=== PATIENT | female | born 1970 | race Caucasian/White ===

== ENCOUNTER 2017-10-18 15:23 | Inpatient (IN) | payer OTHER ==
[2017-10-17] MEDS: FAMOTIDINE 20 MG/2 ML VIAL IV PUSH SCH (23:10)
[2017-10-18] VITALS (7 sets, daily range): BP systolic 130–172; BP diastolic 76–90; PULSE 64–89; RESP 16–20; TEMP 97.9–98.1; O2SAT 93–97
[~2017-10-18 15:23] MED LIST: IODIXANOL 320 MG/ML 10 ML VIAL (for Rad CT) IVCONTRAST ONE; PANT20 PO; ZOFR4TAB3 SL
[2017-10-18] MEDS ORDERED: SODIUM CHLOR 0.9% 1000 ML INJ 1,000 ML IV ONE (15:30)
--- NOTE | 2017-10-18 15:44 | RADRPT ---
EXAM DATE/TIME: 10/18/2017 15:33 [facility] COMPARISON: No previous studies available for comparison. INDICATIONS : Stroke alert, aphasia RADIATION DOSE: 35.60 CTDIvol (mGy) This report was called by Dr. Britt to Dr. Belcher at 1541 hrs. MEDICAL HISTORY : Non-responsive. SURGICAL HISTORY : Non-responsive. ENCOUNTER: Initial ACUITY: 1 day PAIN SCALE: Non-responsive LOCATION: cranial TECHNIQUE: Multiple contiguous axial images were obtained of the head. Using automated exposure control and adj ustment of the mA and/or kV according to patient size, radiation dose was kept as low as reasonably a chievable to obtain optimal diagnostic quality images. DICOM format image data is available electro nically for review and comparison. FINDINGS: CEREBRUM: The ventricles are normal for age. No evidence of midline shift, mass lesion, hemorrhage or acute in farction. No extra-axial fluid collections are seen. POSTERIOR FOSSA: The cerebellum and brainstem are intact. The 4th ventricle is midline. The cerebellopontine angle i s unremarkable. EXTRACRANIAL: The visualized portion of the orbits is intact. SKULL: The calvaria is intact. No evidence of skull fracture. CONCLUSION: Negative examination. Allen Britt MD on October 18, 2017 at 15:40 Board Certified Radiologist. This report was verified electronically.
[2017-10-18 15:52] LABS: AUTOMATED NEUTROPHIL # 4.3 TH/MM3 (1.8-7.7); BASOPHIL % 0.7 % (0.0-2.0); EOSINOPHIL # 0.1 TH/MM3 (0-0.4); HEMATOCRIT 39.6 % (35.0-46.0); HEMOGLOBIN 13.4 GM/DL (11.6-15.3); LYMPH % 27.8 % (9.0-44.0); LYMPHOCYTE # 1.9 TH/MM3 (1.0-4.8); MEAN CORPUSCULAR HEMOGLOBIN 30.7 PG (27.0-34.0); MEAN CORPUSCULAR HGB CONC 33.8 % (32.0-36.0); MEAN PLATELET VOLUME 8.7 FL (7.0-11.0); MONOCYTE # 0.4 TH/MM3 (0-0.9); NEUT % 64.5 % (16.0-70.0); PLATELET COUNT 239 TH/MM3 (150-450); RED BLOOD COUNT 4.36 MIL/MM3 (4.00-5.30); RED CELL DISTRIBUTION WIDTH 13.7 % (11.6-17.2); WHITE BLOOD COUNT 6.7 TH/MM3 (4.0-11.0)
--- NOTE | 2017-10-18 16:01 | RADRPT ---
EXAM DATE/TIME: 10/18/2017 15:33 [facility] COMPARISON: No previous studies available for comparison. INDICATIONS : Stroke alert, aphasia IV CONTRAST: 98 cc Visipaque (iodixanol) IV ; Cumulative dose for multiple exams. RADIATION DOSE: 27.66 CTDIvol (mGy) ; Combined studies MEDICAL HISTORY : Non-responsive. SURGICAL HISTORY : Non-responsive. ENCOUNTER: Initial ACUITY: 1 day PAIN SCALE: Non-responsive LOCATION: cranial Elevated flow velocities and ICA/CCA ratios have been found to correlate with increased degrees of vessel stenosis, calculated as percentage of diameter relative to a normal segment of distal ICA/CCA. TECHNIQUE: Volumetric scanning was performed using a multi-row detector CT scanner. The data was post processed with a variety of visualization algorithms including full volume maximum intensity projection, multi -planar sliding thin slab reformation, curved planar reformation, and surface rendering techniques. Using automated exposure control and adjustment of the mA and/or kV according to patient size, radiat ion dose was kept as low as reasonably achievable to obtain optimal diagnostic quality images. DICO M format image data is available electronically for review and comparison. FINDINGS: There is excellent visualization of the major intracranial arteries out to the second-order branch ve ssels. There is no evidence for aneurysm, vessel truncation or stenosis, and no evidence for vascula r malformation. CONCLUSION: Negative exam. Intracranial vessels are all patent without embolic disease. Clifton Fisher MD on October 18, 2017 at 15:53 Board Certified Radiologist. This report was verified electronically.
--- NOTE | 2017-10-18 16:14 | PD ---
HPI Chief Complaint: Neuro Symptoms/ Deficits Time Seen by Provider: 15:29 Travel History International Travel<30 days: No Contact w/Intl Traveler<30days: No Traveled to known affect area: No History of Present Illness HPI The patient is a 47-year-old female who complains of weakness and expressive aphasia. The symptoms started somewhat suddenly about 2 hours ago the patient was talking on the phone. It was observed by the mother. At that time the principal abnormality was expressive aphasia. The patient complained of increasing left upper extremity weakness. Symptoms progressed and the patient was brought here by private auto. Here she has no pain. The mother notes patient's had increased anxiety over the past several days. Mother also has history of stroke on both sides of the family. PFSH Past Medical History Anxiety: Yes Depression: Yes Immunizations Current: Yes ?: Not Past Surgical History Section: Yes (x2) Eye Surgery: Yes (sinus) Hysterectomy: Yes Social History Alcohol Use: No Tobacco Use: No (quit 6 years ago) Substance Use: No Allergies-Medications (Allergen,Severity, Reaction): Coded Allergies: alendronate sodium (Unverified Allergy, Mild, 05/24/17) paroxetine (Unverified Allergy, Mild, 05/24/17) prochlorperazine (Unverified Allergy, Mild, 05/24/17) Reported Meds & Prescriptions Reported Meds & Active Scripts Active Reported Flucelvax Quad [id number] Inj (Flu Vaccine Quad (4Yr Up) Inj) 60 Mcg (15 Mcg X 4) /0.5 Ml Syringe 0.5 Ml IM .ONCE Dimetapp Cold & Allergy Liq (Brompheniramine-Phenylephrine Liq) 1-2.5 Mg/5 Ml Elix 10 Ml PO Q4-6H PRN Do not exceed 6 doses in 24 hours. Fluticasone Nasal [place] 50 Mcg/Act Naspr 50 Mcg EACH NARE BID 50 mcg/spray Flexeril (Cyclobenzaprine HCl) 10 Mg Tab 10 Mg PO TID Ondansetron (Ondansetron HCl) 4 Mg Tab Lyrica (Pregabalin) 300 Mg Cap 300 Mg PO BID Zolpidem (Zolpidem Tartrate) 10 Mg Tab 10 Mg PO HS PRN Dulera 120 Act Inh (Mometasone-Formoterol 120 Act Inh) 200-5 Mcg/Act Inh 2 Puff INH BID Spiriva Handihaler (Tiotropium Inh) 18 Mcg Cap 18 Mcg INH DAILY 1 capsule = 18 mcg Proventil Hfa 6.7 GM Inh (Albuterol Sulfate) 90 Mcg/Act Aer 1 Puff INH Q4H PRN Proair Hfa 8.5 GM Inh (Albuterol Sulfate) 90 Mcg/Act Aer 1 Puff INH Q4H PRN 108 mcg/actuation Sumatriptan (Sumatriptan Succinate) 100 Mg Tab 100 Mg PO ONCE PRN If a satisfactory response has not been obtained at 2 hours, a second dose may be administered Omeprazole 40 Mg Cap 40 Mg PO DAILY Buspirone (Buspirone HCl) 15 Mg Tab 15 Mg PO BID Escitalopram (Escitalopram Oxalate) 20 Mg Tab 20 Mg PO DAILY Cetirizine (Cetirizine HCl) 10 Mg Tab 10 Mg PO DAILY Review of Systems Except as stated in HPI: all other systems reviewed are Neg General / Constitutional: No: Fever Physical Exam Narrative GENERAL: 47-year-old female mildly anxious well-nourished well-developed SKIN: Warm and dry. HEAD: Atraumatic. Normocephalic. EYES: Pupils equal and round. No scleral icterus. No injection or drainage. ENT: No nasal bleeding or discharge. Mucous membranes pink and moist. NECK: Trachea midline. No JVD. CARDIOVASCULAR: Regular rate and rhythm. RESPIRATORY: No accessory muscle use. Clear to auscultation. Breath sounds equal bilaterally. GASTROINTESTINAL: Abdomen soft, non-tender, nondistended. Hepatic and splenic margins not palpable. MUSCULOSKELETAL: Extremities without clubbing, cyanosis, or edema. No obvious deformities. NEUROLOGICAL: Upon smiling there appears to be weakness on both sides of the face. At times the right eyebrow does not elevate while the left eyebrow does. No other times both eyebrows elevate. On pronator drift assessment both arms for the ground. The patient can elevate the right lower extremity about the left lower extremity. The patient can repeat simple phrases with stuttering of speech. The patient is a note 3. PSYCHIATRIC: Appropriate mood and affect; insight and judgment normal. Data Data Last Documented VS Vital Signs Date Time Temp Pulse Resp B/P (MAP) Pulse Ox O2 Delivery O2 Flow Rate FiO2 10/18/17 15:54 98.1 68 18 149/76 (100) 93 Room Air VS reviewed Orders Orders Diet Npo (10/18/17 Dinner) Activity Bed Rest (10/18/17 ) Electrocardiogram (10/18/17 ) I-Stat Creatinine (10/18/17 15:30) I-Stat Profile (10/18/17 15:30) Prothrombin Time / Inr (Pt) (10/18/17 15:30) Act Partial Throm Time (Ptt) (10/18/17 15:30) Complete Blood Count With Diff (10/18/17 15:30) Fibrinogen (10/18/17 15:30) Creatine Kinase (Cpk) (10/18/17 15:30) Troponin I (10/18/17 15:30) Ua Includes Microscopic (10/18/17 15:30) Drug Screen, Random Urine (10/18/17 15:30) Type And Screen (10/18/17 15:30) Ct Brain W/O Iv Contrast(Rout) (10/18/17 ) Cta Brain W Iv Contrast W 3d (10/18/17 15:30) Cta Neck W Iv Contrast W 3d (10/18/17 15:30) Beta Hcg (Quant/Titer) (10/18/17 15:30) Consult Neurology (10/18/17 ) Blood Glucose (10/18/17 15:30) Ecg Monitoring (10/18/17 15:30) Neuro Checks Q2HX12,Q4H (10/18/17 15:30) Nursing Bedside Swallow Assess .ONCE (10/18/17 15:30) Iv Access Insert/Monitor (10/18/17 15:30) NPO (10/18/17 15:30) Oximetry (10/18/17 15:30) Oxygen Administration (10/18/17 15:30) Sodium Chlor 0.9% 1000 Ml Inj (Ns 1000 M (10/18/17 15:30) Resp Oxygen Kadeem C Titrat 1-4 L (10/18/17 15:30) Cath For Specimen (10/18/17 15:30) (Hub Use Only)Inp Phy Cons/Ref (10/18/17 ) ^ Call Pharmacy (10/18/17 16:01) Nih Stroke Scale - Nihss .ONCE (10/18/17 16:01) Urinary Catheter Insert/Apply (10/18/17 16:01) Anticoagulant Alert (10/18/17 16:01) ^ Post Infusion Restrictions (10/18/17 16:01) ^ Medication Alert (10/18/17 16:01) Vital Signs (Adult) .As directed (10/18/17 16:01) Notify Dr: Blood Pressure (10/18/17 16:01) ^ Medication Alert (10/18/17 16:01) Alteplase Bolus (Activase Bolus) (10/18/17 16:15) Alteplase Drip (Activase Drip) (10/18/17 16:15) Sodium Chloride 0.9% Inj (Ns Inj) (10/18/17 16:15) [facility] (10/18/17 16:15) Resp Oxygen Kadeem C Titrat 1-4 L (10/18/17 ) CKMB (10/18/17 15:25) CKMB% (10/18/17 15:25) Admit Order (Ed Use Only) (10/18/17 ) Corrugated Fastener Driver / Telemetry BREA.Q8H (10/18/17 16:51) Vital Signs (Adult) Q4H (10/18/17 16:51) Activity Bed Rest (10/18/17 16:51) Notify Dr: Other (10/18/17 16:51) Labs Laboratory Tests Test 10/18/17 15:25 White Blood Count 6.7 TH/MM3 Red Blood Count 4.36 MIL/MM3 Hemoglobin 13.4 GM/DL Bedside Hemoglobin 13.6 G/DL Hematocrit 39.6 % Bedside Hematocrit 40.0 % Mean Corpuscular Volume 91.0 FL Mean Corpuscular Hemoglobin 30.7 PG Mean Corpuscular Hemoglobin Concent 33.8 % Red Cell Distribution Width 13.7 % Platelet Count 239 TH/MM3 Mean Platelet Volume 8.7 FL Neutrophils (%) (Auto) 64.5 % Lymphocytes (%) (Auto) 27.8 % Monocytes (%) (Auto) 6.0 % Eosinophils (%) (Auto) 1.0 % Basophils (%) (Auto) 0.7 % Neutrophils # (Auto) 4.3 TH/MM3 Lymphocytes # (Auto) 1.9 TH/MM3 Monocytes # (Auto) 0.4 TH/MM3 Eosinophils # (Auto) 0.1 TH/MM3 Basophils # (Auto) 0.0 TH/MM3 CBC Comment DIFF FINAL Differential Comment Prothrombin Time 10.0 SEC Prothromb Time International Ratio 1.0 RATIO Activated Partial Thromboplast Time 25.9 SEC Fibrinogen 375 mg/dL Bedside Sodium 139 MMOL/L Bedside Potassium 4.0 MMOL/L Bedside Chloride 101 MMOL/L Bedside Blood Urea Nitrogen 10 MG/DL Bedside Creatinine 0.9 MG/DL Bedside Glucose 93 MG/DL Total Creatine Kinase 209 U/L Creatine Kinase MB 2.9 NG/ML Creatine Kinase MB % 1.4 % Troponin I LESS THAN 0.02 NG/ML Human Chorionic Gonadotropin, Quant LESS THAN 1 MIU/ML MDM Medical Screen Exam Complete: Yes Emergency Medical Condition: Yes Medical Record Reviewed: Yes Differential Diagnosis Hemorrhagic stroke, ischemic stroke, anxiety, complex migraine, Karan's paralysis Narrative Course The patient and mother were present for a long discussion about the risks benefits and alternatives to TPA. Patient verbalized understanding along with the mother and requested to proceed with TPA. The risk factors present. TPA ordered at approximately 3:50 PM and administered shortly thereafter. CBC & BMP Diagram 10/18/17 15:25 At approx 550pm patient was reported to have lower lip swelling concerning for angioedema. Patient was immediately evaluated and Pepcid, Solu-Medrol and Benadryl were ordered. Continue monitoring his plan with the concern for need for airway protection. Re-evaluated at 602PM with no significant worsening. Critical Care Narrative Aggregate critical care time was 35 minutes. Time to perform other separately billable procedures was not included in the critical care time. My time did not include minutes spent treating any other patients simultaneously or on activities that did not directly contribute to the patient's treatment. The services I provided to this patient were to treat and/or prevent clinically significant deterioration that could result in: Cardiopulmonary arrest, permanent weakness/deficit I provided critical care services requiring my management, as noted below: Chart data review, documentation time, medication orders and management, vital sign assessments/reviewing monitor data, ordering and reviewing lab tests, ordering and interpreting/reviewing x-rays and diagnostic studies, care of the patient and discussion of the patient with the admitting physicians. Stroke Alert NIHSS NIH Stroke Scale Result: 8 NIHSS Time Completed: 15:35 Diagnosis Diagnosis: Primary Impression: Stroke Qualified Codes: I63.9 - Cerebral infarction, unspecified Admitting Physician Requests: Sharif Wolf MD Oct 18, 2017 16:14
[2017-10-18] MEDS ORDERED: SODIUM CHLORIDE 0.9% 50 ML BAG IVF ONE (16:15)
[2017-10-18] MEDS ORDERED: MISCELLANEOUS NURSING INFORMATION XX PRN (16:15)
[2017-10-18] MEDS ORDERED: ALTEPLASE BOLUS 9 MG/9 ML SYR IV ONE (16:15)
[2017-10-18] MEDS ORDERED: ALTEPLASE DRIP 78.5 MG in SYRINGE/BAG 1 EA IV ONE (16:15)
--- NOTE | 2017-10-18 16:19 | RADRPT ---
EXAM DATE/TIME: 10/18/2017 15:33 [facility] COMPARISON: No previous studies available for comparison. INDICATIONS : Stroke alert, aphasia. IV CONTRAST: 98 cc Visipaque (iodixanol) IV ; Cumulative dose for multiple exams. RADIATION DOSE: 27.08 CTDIvol (mGy) ; Combined studies MEDICAL HISTORY : Non-responsive. SURGICAL HISTORY : Non-responsive. ENCOUNTER: Initial ACUITY: 1 day PAIN SCALE: Non-responsive LOCATION: neck Elevated flow velocities and ICA/CCA ratios have been found to correlate with increased degrees of vessel stenosis, calculated as percentage of diameter relative to a normal segment of distal ICA/CCA. TECHNIQUE: Volumetric scanning was performed using a multirow detector CT scanner. The data was post processed with a variety of visualization algorithms including full-volume maximum intensity projection, multip lanar sliding thin-slab reformation, curved-planar reformation, and surface-rendering techniques. Us ing automated exposure control and adjustment of the mA and/or kV according to patient size, radiatio n dose was kept as low as reasonably achievable to obtain optimal diagnostic quality images. DICOM f ormat image data is available electronically for review and comparison. FINDINGS: AORTIC ARCH: Truncus arch anatomy is present. In addition, the left vertebral artery arises very low on the left s ubclavian, just past the vessel ostia. The arch vessels are all widely patent. RIGHT CAROTID: The common carotid artery is intact. The carotid bulb has a normal configuration without ulceration o r narrowing. The internal carotid artery lumen is smooth without stenosis. The external carotid jonathan ry is intact. LEFT CAROTID: The common carotid artery is intact. The carotid bulb has a normal configuration without ulceration or narrowing. The internal carotid artery lumen is smooth without stenosis. The external carotid ar omer is intact. VERTEBRALS: Vertebral arteries are patent bilaterally, right side minimally dominant. CONCLUSION: No evidence of significant carotid or vertebral disease. Jadiel Shields MD on October 18, 2017 at 16:10 Board Certified Radiologist. This report was verified electronically.
[2017-10-18 16:26] LABS: TROPONIN I LESS THAN 0.02 NG/ML (0.02-0.05)
[2017-10-18] MEDS ORDERED: PREG300 PO (16:32)
[2017-10-18] MEDS ORDERED: FLU60SYR IM (16:32)
[2017-10-18] MEDS ORDERED: SPIRCAP INH (16:32)
[2017-10-18] MEDS ORDERED: DULE200A INH (16:32)
[2017-10-18] MEDS ORDERED: ALBUAER3 INH (16:32)
[2017-10-18] MEDS ORDERED: BUSP15TA PO (16:32)
[2017-10-18] MEDS ORDERED: ONDA4TAB15 (16:32)
[2017-10-18] MEDS ORDERED: FLUT50SP EACH NARE (16:32)
[2017-10-18] MEDS ORDERED: SUMA100T2 PO (16:32)
[2017-10-18] MEDS ORDERED: CETI10 PO (16:32)
[2017-10-18] MEDS ORDERED: ALBU6.7H INH (16:32)
[2017-10-18] MEDS ORDERED: ZOLP10TA3 PO (16:32)
[2017-10-18] MEDS ORDERED: OMEP40CA2 PO (16:32)
[2017-10-18] MEDS ORDERED: DIMEELX PO (16:32)
[2017-10-18] MEDS ORDERED: CYCL10TA PO (16:32)
[2017-10-18] MEDS ORDERED: ESCI20TA PO (16:32)
[2017-10-18] MEDS ORDERED: MISCELLANEOUS NURSING INFORMATION XX SCH (17:15)
[2017-10-18] MEDS ORDERED: MAGNESIUM HYDROXIDE SUSP 30 ML CUP PO PRN (17:15)
[2017-10-18] MEDS ORDERED: GLUCAGON 1 MG/ML VIAL OTHER PRN (17:15)
[2017-10-18] MEDS ORDERED: ACETAMINOPHEN 325 MG TAB PO PRN (17:15)
[2017-10-18] MEDS ORDERED: BISACODYL 10 MG SUPP RECTAL PRN (17:15)
[2017-10-18] MEDS ORDERED: MORPHINE SULFATE 2 MG/ML INJ IV PUSH PRN (17:15)
[2017-10-18] MEDS ORDERED: CHLORHEXIDINE GLUCONATE 2 % 1 PACK (2 CLOTHS) TOP PRN (17:15)
[2017-10-18] MEDS ORDERED: LACTULOSE SYRUP 20 GM/30 ML CUP PO PRN (17:15)
[2017-10-18] MEDS ORDERED: LABETALOL HCL 100 MG/20 ML VIAL IV PUSH PRN (17:15)
[2017-10-18] MEDS ORDERED: SENNOSIDES 8.6 MG TAB PO PRN (17:15)
[2017-10-18] MEDS ORDERED: DEXTROSE 50% IN WATER 50 ML VIAL(D50) IV PUSH PRN (17:15)
[2017-10-18] MEDS ORDERED: RESP: ALBUTEROL 2.5 MG/3 ML NEB (PRN) INH (17:15)
[2017-10-18] MEDS ORDERED: ENALAPRILAT 1.25 MG/ML VIAL IV PUSH PRN (17:15)
[2017-10-18] MEDS ORDERED: SODIUM CHLORIDE 0.9% FLUSH 10 ML FLUSH IV FLUSH PRN ×2 (17:15)
--- NOTE | 2017-10-18 17:16 | PD.CONS ---
History of Present Illness Service Neurology Consult Requested By er Reason for Consult stroke alert Primary Care Physician Unknown History of Present Illness 47-year-old female who complains of weakness and expressive aphasia. onset approx 2 hrs prior to arrival to er. noticed to have difficulty with speech and weakness in both arms. ct brain naicp. glucose 93. denies courtney/cp/dyspnea. admits to stress. no current tob use. not on any blood thinner. no hx of afib, dvt, clots. spouse has been ill and in and out of hospital. she has had anxiety related to this. both parents with hx of stroke. PFSH Past Medical History Anxiety: Yes Depression: Yes Immunizations Current: Yes ?: Not Past Surgical History Section: Yes (x2) Eye Surgery: Yes (sinus) Hysterectomy: Yes Social History Alcohol Use: No Tobacco Use: No (quit 6 years ago) Substance Use: No Allergies-Medications (Allergen,Severity, Reaction): Coded Allergies: alendronate sodium (Unverified Allergy, Mild, 05/24/17) paroxetine (Unverified Allergy, Mild, 05/24/17) prochlorperazine (Unverified Allergy, Mild, 05/24/17) Reported Meds & Prescriptions Reported Meds & Active Scripts Active Review of Systems Except as stated in HPI: all other systems reviewed are Neg Review of Systems All other ROS: ROS reviewed as documented in chart Past Family Social History Allergies: Coded Allergies: alendronate sodium (Unverified Allergy, Mild, 05/24/17) paroxetine (Unverified Allergy, Mild, 05/24/17) prochlorperazine (Unverified Allergy, Mild, 05/24/17) Active Ordered Medications Current Medications Medications (Trade) Dose Ordered Sig/Dolores Route Start Time Stop Time Status Last Admin Sodium Chloride 1,000 ml @ 70 mls/hr [id number] ONCE IV 10/18/17 15:30 10/19/17 05:47 10/18/17 16:17 Alteplase, Recombinant 78.5 mg/Syringe / Bag 78.5 ml @ 78.5 mls/hr ONCE ONCE IV 10/18/17 16:15 10/18/17 17:14 10/18/17 16:08 Miscellaneous Information No Heparin, Warfarin, Aspir... UNSCH PRN XX 10/18/17 16:15 10/19/17 16:14 Exam I&O / VS Vital Signs Date Time Temp Pulse Resp B/P (MAP) Pulse Ox O2 Delivery O2 Flow Rate FiO2 10/18/17 15:54 98.1 68 18 149/76 (100) 93 Room Air 10/18/17 15:43 73 20 172/90 (117) 95 Room Air 10/18/17 15:30 96 Room Air 10/18/17 15:30 96 Room Air 10/18/17 15:30 97.9 89 16 130/89 (103) 96 10/18/17 15:25 73 18 160/84 (109) 95 General: No acute distress Eye: EOMI Respiratory: Non-labored respirations Cardiology: Normal rate Neurologic: Alert Exam Comments lying in bed, in nad, fully alert, stuttering speech with variable frequency and intensity. no gaze deviation, follows, eomi, face sym, vff, ou 3-2mm, when asked to protruded tongue, keeps her mouth closed and slowly attempts to push tongue out, drift in both ue and le but can keep rt arm sustained elevated at other times, planterflexor, withdraws to pin, nihss 7 Review/Management Diagnosis/Plan: (1) Psychogenic weakness ICD Codes: R53.1 - Weakness Status: Acute Plan: suspect psychogenic pt and mother are very concerned that she is having a stroke, especially in light of her family hx and want her to have tpa. they understand the r/b including but not limited to ich, systemic bleeding recs mri brain ct brain 24hrs isc no bloodthinners scd's may need psych eval; await results of mri first (2) Stroke ICD Codes: I63.9 - Cerebral infarction, unspecified Status: Acute Problem Qualifiers (1) Stroke: Qualified Codes: I63.9 - Cerebral infarction, unspecified Jerome Zaragoza MD Oct 18, 2017 17:16
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
[2017-10-18] MEDS: SODIUM CHLOR 0.9% 1000 ML INJ 1,000 ML IV SCH (17:58)
[2017-10-18] MEDS: ARTIFICIAL TEARS OPTH SOLN 15 ML BTL EACH EYE SCH (18:00)
[2017-10-18] MEDS ORDERED: FAMOTIDINE 20 MG/2 ML VIAL IV PUSH ONE (18:00)
[2017-10-18] MEDS ORDERED: niCARdipine INJ 25 MG in SODIUM CHLOR 0.9% 250 ML INJ 240 ML IV PRN (18:00)
[2017-10-18] MEDS ORDERED: diphenhydrAMINE HCL 50 MG/ML VIAL IVP ONE (18:00)
[2017-10-18] MEDS ORDERED: methylPREDNISolone SOD SUCC 125 MG/2 ML VIAL IV PUSH ONE (18:00)
[2017-10-18 18:01] LABS: BILIRUBIN, URINE NEG (NEG); BLOOD, URINE NEG (NEG); GLUCOSE,URINE NEG (NEG); KETONE, URINE NEG (NEG); MUCUS URINE FEW /lpf (OCC); NITRITE,URINE NEG (NEG); SQUAMOUS EPITHELIAL CELL URINE <1 /hpf (0-5); URINE COLOR YELLOW (YELLW/STRAW); URINE LEUKOCYTE ESTERASE NEG (NEG)
[2017-10-18] MEDS: ONDANSETRON HCL 4 MG/2 ML VIAL IV PUSH PRN (19:54)
[2017-10-18] MEDS: SODIUM CHLORIDE 0.9% FLUSH 10 ML FLUSH IV FLUSH SCH (21:00)
[2017-10-18] MEDS: FLUTICASONE PROPIONATE 50 MCG/ACT 16 GM NASAL SPRAY EACH NARE SCH (21:00)
[2017-10-18] MEDS ORDERED: MOMETASONE FORMOTEROL INH SCH (21:00)
[2017-10-18] MEDS ORDERED: SODIUM CHLORIDE 0.9% FLUSH 10 ML FLUSH IV FLUSH SCH (21:00)
[2017-10-18] MEDS: INSULIN ASPART SUPPLEMENTAL SCALE SQ SCH (21:00)
[2017-10-18] MEDS: RESP: ALBUTEROL 2.5 MG/IPRATROPIUM 0.5 MG NEB (SCH) INH (22:00)
[2017-10-18] MEDS: busPIRone HCL 5 MG TAB PO SCH (23:10)
[2017-10-18] MEDS: PREGABALIN 100 MG CAP PO SCH (23:10)
[2017-10-18] MEDS: DOCUSATE SODIUM 50 MG/SENNA 8.6 MG TAB PO SCH (23:10)
[2017-10-19] VITALS (10 sets, daily range): BP systolic 116–162; BP diastolic 61–85; PULSE 58–96; RESP 18–20; TEMP 97.8–98.5; O2SAT 90–98
[2017-10-19] MEDS: ACETAMINOPHEN/HYDROcodone 325 MG/5 MG TAB PO PRN ×6 (00:27→23:29)
[2017-10-19] MEDS: CHLORHEXIDINE GLUCONATE 2 % 1 PACK (2 CLOTHS) TOP SCH (02:30)
[2017-10-19 03:41] LABS: AUTOMATED NEUTROPHIL # 7.1 TH/MM3 (1.8-7.7); BASOPHIL % 0.3 % (0.0-2.0); HEMATOCRIT 39.6 % (35.0-46.0); HEMOGLOBIN 13.5 GM/DL (11.6-15.3); LYMPH % 6.8 % (9.0-44.0); LYMPHOCYTE # 0.5 TH/MM3 (1.0-4.8); MEAN CORPUSCULAR HGB CONC 34.1 % (32.0-36.0); MEAN PLATELET VOLUME 8.5 FL (7.0-11.0); MONO % 0.6 % (0.0-8.0); NEUT % 92.3 % (16.0-70.0); PLATELET COUNT 227 TH/MM3 (150-450); RED BLOOD COUNT 4.35 MIL/MM3 (4.00-5.30); RED CELL DISTRIBUTION WIDTH 13.6 % (11.6-17.2); WHITE BLOOD COUNT 7.7 TH/MM3 (4.0-11.0)
[2017-10-19] MEDS: ONDANSETRON HCL 4 MG/2 ML VIAL IV PUSH PRN (03:42)
[2017-10-19 03:50] LABS: PROTHROMBIN TIME - PATIENT 10.5 SEC (9.8-11.6)
[2017-10-19] MEDS: RESP: ALBUTEROL 2.5 MG/IPRATROPIUM 0.5 MG NEB (SCH) INH ×4 (03:50→20:27)
[2017-10-19 03:55] LABS: ALBUMIN 3.6 GM/DL (3.4-5.0); ALT (GPT) 24 U/L (10-53); AST (GOT) 18 U/L (15-37); BICARBONATE 25.6 MEQ/L (21.0-32.0); BLOOD UREA NITROGEN 11 MG/DL (7-18); CALCIUM 8.6 MG/DL (8.5-10.1); CHLORIDE 105 MEQ/L (98-107); CHOLESTEROL 266 MG/DL (120-200); CREATININE 0.75 MG/DL (0.50-1.00); GLOMERULAR FILTRATION RATE 84 ML/MIN (>89); GLUCOSE,RANDOM 127 MG/DL (74-106); MAGNESIUM 2.3 MG/DL (1.5-2.5); SODIUM (NA) 139 MEQ/L (136-145)
[2017-10-19 03:58] LABS: ALKALINE PHOSPHATASE 80 U/L (45-117); CHOLESTEROL/ HDL RATIO 3.41 RATIO; LDL CHOLESTEROL 179 MG/DL (0-99); PHOSPHORUS 2.7 MG/DL (2.5-4.9); TOTAL BILIRUBIN ADULT 0.3 MG/DL (0.2-1.0); TOTAL PROTEIN 7.6 GM/DL (6.4-8.2); TRIGLYCERIDES 46 MG/DL (42-150)
[2017-10-19] MEDS: SODIUM CHLOR 0.9% 1000 ML INJ 1,000 ML IV SCH ×2 (06:04→21:44)
[2017-10-19] MEDS: INSULIN ASPART SUPPLEMENTAL SCALE SQ SCH ×4 (07:21→21:00)
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
--- NOTE | 2017-10-19 08:49 | HHI.PR ---
Review/Management Diagnosis/Plan: (1) Psychogenic weakness ICD Codes: R53.1 - Weakness Status: Acute Plan: suspect psychogenic vs rt mca doing better recs mri brain-pending eeg statin added ct brain at 24hrs no bloodthinners until scan completed therapy scd's ok for floor with tele (2) Stroke ICD Codes: I63.9 - Cerebral infarction, unspecified Status: Acute (3) HLD (hyperlipidemia) ICD Codes: E78.5 - Hyperlipidemia, unspecified Status: Chronic Plan: statin (4) Anxiety ICD Codes: F41.9 - Anxiety disorder, unspecified (5) Migraine headache ICD Codes: G43.909 - Migraine, unspecified, not intractable, without status migrainosus Subjective Subjective Comments No acute events reported tells me she works for [employer] No headache No chest pain No dyspnea Active Medications Current Medications Medications (Trade) Dose Ordered Sig/Dolores Route Start Time Stop Time Status Last Admin Miscellaneous Information No Heparin, Warfarin, Aspir... UNSCH PRN XX 10/18/17 16:15 10/19/17 16:14 (NS Flush) 2 ml BID IV FLUSH 10/18/17 21:00 10/18/17 21:00 (NS Flush) 2 ml UNSCH PRN IV FLUSH 10/18/17 17:15 Sodium Chloride 1,000 ml @ 70 mls/hr [id number] IV 10/18/17 17:08 10/19/17 06:04 (Vasotec Inj) 1.25 mg Q4H PRN IV PUSH 10/18/17 17:15 (Trandate Inj) 10 mg Q2H PRN IV PUSH 10/18/17 17:15 Nicardipine HCl 25 mg/Sodium Chloride 250 ml @ 50 mls/hr TITRATE PRN IV 10/18/17 18:00 (NovoLOG SUPPLEMENTAL SCALE) 1 ACHS SQ 10/18/17 21:00 (D50w (Vial) Inj) 50 ml UNSCH PRN IV PUSH 10/18/17 17:15 (Glucagon Inj) 1 mg UNSCH PRN OTHER 10/18/17 17:15 (Tylenol) 650 mg Q6H PRN PO 10/18/17 17:15 ([place] 5-325 Mg) 1 tab Q4H PRN PO 10/18/17 17:15 10/19/17 05:28 (Morphine Inj) 2 mg Q2H PRN IV PUSH 10/18/17 17:15 10/18/17 19:54 (Pepcid Inj) 20 mg Q12HR IV PUSH 10/18/17 21:00 10/17/17 23:10 (Tears Naturale Opth Soln) 1 drop TID EACH EYE 10/18/17 18:00 (Zofran Inj) 4 mg Q6H PRN IV PUSH 10/18/17 17:15 10/19/17 03:42 (Duoneb Neb) 1 ampule Q6HR NEB INH 10/18/17 22:00 10/19/17 03:50 (Albuterol Neb) 2.5 mg Q2HR NEB PRN INH 10/18/17 17:15 Miscellaneous Information 1 Q361D XX 10/18/17 17:15 (Chlorhexidine 2% Cloth) 3 pack Taper DAILY@04 TOP 10/19/17 04:00 10/15/18 03:59 10/19/17 02:30 (Chlorhexidine 2% Cloth) 3 pack UNSCH PRN TOP 10/18/17 17:15 (Sindy-Colace) 1 tab BID PO 10/18/17 21:00 10/18/17 23:10 (Milk Of Magnesia Liq) 30 ml Q12H PRN PO 10/18/17 17:15 (Senokot) 17.2 mg Q12H PRN PO 10/18/17 17:15 (Dulcolax Supp) 10 mg DAILY PRN RECTAL 10/18/17 17:15 (Lactulose Liq) 30 ml DAILY PRN PO 10/18/17 17:15 (Buspar) 15 mg BID PO 10/18/17 21:00 10/18/17 23:10 (ZyrTEC) 10 mg DAILY PO 10/19/17 09:00 (Lexapro) 20 mg DAILY PO 10/19/17 09:00 (Flonase Kadeem Spr) 1 spray BID EACH NARE 10/18/17 21:00 (Lyrica) 300 mg BID PO 10/18/17 21:00 10/18/17 23:10 Patient Own Medication PT OWN MED: Mometasone-Formoterol... BID INH 10/19/17 09:00 Future Hold (Lipitor) 40 mg HS PO 10/19/17 21:00 UNV Allergies Allergies Coded Allergies alendronate sodium (Unverified Allergy, Mild, 05/24/17) paroxetine (Unverified Allergy, Mild, 05/24/17) prochlorperazine (Unverified Allergy, Mild, 05/24/17) Review of Systems All other ROS: ROS reviewed as documented in chart Exam I&O / VS Vital Signs Date Time Temp Pulse Resp B/P (MAP) Pulse Ox O2 Delivery O2 Flow Rate FiO2 10/19/17 07:50 98.2 73 18 129/79 (96) 95 10/19/17 07:00 72 10/19/17 02:30 96 10/19/17 02:07 98.4 90 18 134/85 (101) 90 10/19/17 01:47 81 18 133/61 (85) 96 10/18/17 23:00 10/18/17 19:48 65 16 143/88 (106) 97 Nasal Cannula 1.00 10/18/17 19:00 10/18/17 17:10 96 21 10/18/17 15:54 98.1 68 18 149/76 (100) 93 Room Air 10/18/17 15:43 73 20 172/90 (117) 95 Room Air 10/18/17 15:30 96 Room Air 10/18/17 15:30 96 Room Air 10/18/17 15:30 97.9 89 16 130/89 (103) 96 10/18/17 15:25 73 18 160/84 (109) 95 General: No acute distress Eye: EOMI Respiratory: Non-labored respirations Cardiology: Normal rate Neurologic: Alert Exam Comments lying in bed, in nad, fully alert, stuttering speech with variable frequency and intensity. follows, no gaze deviation, follows, eomi, face sym, vff, ou 3- 2mm, rt side 5/5 today, left mild hemiparesis 3-4/5 Objective Micro and Labs Laboratory Tests Test 10/18/17 15:25 10/19/17 03:30 White Blood Count 6.7 7.7 Red Blood Count 4.36 4.35 Hemoglobin 13.4 13.5 Bedside Hemoglobin 13.6 Hematocrit 39.6 39.6 Bedside Hematocrit 40.0 Mean Corpuscular Volume 91.0 91.0 Mean Corpuscular Hemoglobin 30.7 31.0 Mean Corpuscular Hemoglobin Concent 33.8 34.1 Red Cell Distribution Width 13.7 13.6 Platelet Count 239 227 Mean Platelet Volume 8.7 8.5 Neutrophils (%) (Auto) 64.5 92.3 Lymphocytes (%) (Auto) 27.8 6.8 Monocytes (%) (Auto) 6.0 0.6 Eosinophils (%) (Auto) 1.0 0.0 Basophils (%) (Auto) 0.7 0.3 Neutrophils # (Auto) 4.3 7.1 Lymphocytes # (Auto) 1.9 0.5 Monocytes # (Auto) 0.4 0.0 Eosinophils # (Auto) 0.1 0.0 Basophils # (Auto) 0.0 0.0 CBC Comment DIFF FINAL DIFF FINAL Differential Comment Prothrombin Time 10.0 10.5 Prothromb Time International Ratio 1.0 1.0 Activated Partial Thromboplast Time 25.9 25.7 Fibrinogen 375 Urine Color YELLOW Urine Turbidity CLEAR Urine pH 6.0 Urine Specific [place] GREATER THAN 1.050 Urine Protein TRACE Urine Glucose (UA) NEG Urine Ketones NEG Urine Occult Blood NEG Urine Nitrite NEG Urine Bilirubin NEG Urine Urobilinogen LESS THAN 2.0 Urine Leukocyte Esterase NEG Urine WBC 1 Urine Squamous Epithelial Cells <1 Urine Mucus FEW Bedside Sodium 139 Bedside Potassium 4.0 Bedside Chloride 101 Bedside Blood Urea Nitrogen 10 Bedside Creatinine 0.9 Bedside Glucose 93 Total Creatine Kinase 209 162 Creatine Kinase MB 2.9 Creatine Kinase MB % 1.4 Troponin I LESS THAN 0.02 Human Chorionic Gonadotropin, Quant LESS THAN 1 Urine Opiates Screen POS Urine Barbiturates Screen NEG Urine Amphetamines Screen NEG Urine Benzodiazepines Screen NEG Urine Cocaine Screen NEG Urine Cannabinoids Screen NEG Blood Urea Nitrogen 11 Creatinine 0.75 Random Glucose 127 Total Protein 7.6 Albumin 3.6 Calcium Level 8.6 Phosphorus Level 2.7 Magnesium Level 2.3 Alkaline Phosphatase 80 Aspartate Amino Transf (AST/SGOT) 18 Alanine Aminotransferase (ALT/SGPT) 24 Total Bilirubin 0.3 Sodium Level 139 Potassium Level 4.2 Chloride Level 105 Carbon Dioxide Level 25.6 Anion Gap 8 Estimat Glomerular Filtration Rate 84 Lactic Acid Level 0.8 Triglycerides Level 46 Cholesterol Level 266 LDL Cholesterol 179 HDL Cholesterol 78.0 Cholesterol/HDL Ratio 3.41 Problem Qualifiers (1) Stroke: Qualified Codes: I63.9 - Cerebral infarction, unspecified (2) HLD (hyperlipidemia): Qualified Codes: E78.5 - Hyperlipidemia, unspecified (3) Migraine headache: Qualified Codes: G43.009 - Migraine without aura, not intractable, without status migrainosus Jerome Zaragoza MD Oct 19, 2017 08:49
[2017-10-19] MEDS: ARTIFICIAL TEARS OPTH SOLN 15 ML BTL EACH EYE SCH ×3 (09:00→17:37)
[2017-10-19] MEDS: FLUTICASONE PROPIONATE 50 MCG/ACT 16 GM NASAL SPRAY EACH NARE SCH ×2 (09:00→21:00)
[2017-10-19] MEDS: DOCUSATE SODIUM 50 MG/SENNA 8.6 MG TAB PO SCH ×2 (09:00→21:58)
[2017-10-19] MEDS ORDERED: MOMETASONE FORMOTEROL INH SCH (09:00)
[2017-10-19] MEDS: SODIUM CHLORIDE 0.9% FLUSH 10 ML FLUSH IV FLUSH SCH ×2 (09:20→21:00)
[2017-10-19] MEDS: FAMOTIDINE 20 MG/2 ML VIAL IV PUSH SCH ×2 (09:20→21:58)
[2017-10-19] MEDS: busPIRone HCL 5 MG TAB PO SCH ×2 (09:21→21:59)
[2017-10-19] MEDS: PREGABALIN 100 MG CAP PO SCH ×2 (10:22→21:58)
[2017-10-19] MEDS: CETIRIZINE HCL 10 MG TAB PO SCH (12:49)
[2017-10-19] MEDS: ESCITALOPRAM OXALATE 20 MG TAB PO SCH (12:49)
[2017-10-19 14:06] LABS: HEMOGLOBIN A1C 5.2 % (4.3-6.0)
--- NOTE | 2017-10-19 16:52 | RADRPT ---
EXAM DATE/TIME: 10/19/2017 16:24 [facility] COMPARISON: CT BRAIN W/O CONTRAST, October 18, 2017, 15:33. INDICATIONS : F/U stroke alert 10/18/17, post TPA. RADIATION DOSE: 35.25 CTDIvol (mGy) MEDICAL HISTORY : Cerebrovascular disease. SURGICAL HISTORY : Hysterectomy. ENCOUNTER: Subsequent ACUITY: 1 day PAIN SCALE: 0/10 LOCATION: cranial TECHNIQUE: Multiple contiguous axial images were obtained of the head. Using automated exposure control and adj ustment of the mA and/or kV according to patient size, radiation dose was kept as low as reasonably a chievable to obtain optimal diagnostic quality images. DICOM format image data is available electro nically for review and comparison. FINDINGS: CEREBRUM: The ventricles are normal for age. No evidence of midline shift, mass lesion, hemorrhage or acute in farction. No extra-axial fluid collections are seen. POSTERIOR FOSSA: The cerebellum and brainstem are intact. The 4th ventricle is midline. The cerebellopontine angle i s unremarkable. EXTRACRANIAL: The visualized portion of the orbits is intact. SKULL: The calvaria is intact. No evidence of skull fracture. CONCLUSION: Negative for an acute process. Bill Bailey MD FACR on October 19, 2017 at 16:49 Board Certified Radiologist. This report was verified electronically.
--- NOTE | 2017-10-19 17:41 | RADRPT ---
EXAM DATE/TIME: 10/19/2017 16:38 [facility] COMPARISON: No previous studies available for comparison. INDICATIONS : CVA. Difficulty speaking. Stroke alert yesterday. Post TPA. MEDICAL HISTORY : None. SURGICAL HISTORY : Tubal ligation. Hysterectomy. ENCOUNTER: Subsequent ACUITY: 2 day PAIN SCORE: 0/10 LOCATION: head. TECHNIQUE: Multiplanar, multisequence MRI of the brain was performed without contrast. FINDINGS: Minimal periventricular white matter changes are noted. There is no restricted diffusion to suggest ischemic process.. There is no parenchymal hemorrhage Ventricular size is appropriate There are no extra-axial fluid collection appreciated Midline structures are intact Orbits and paranasal sinuses are unremarkable. CONCLUSION: 1. There is no evidence of acute ischemic event. 2. There is no evidence for hemorrhage. Bill Bailey MD FACR on October 19, 2017 at 17:36 Board Certified Radiologist. This report was verified electronically.
--- NOTE | 2017-10-19 17:57 | RADRPT ---
EXAM DATE/TIME: 10/19/2017 16:38 [facility] COMPARISON: No previous studies available for comparison. INDICATIONS : CVA. Difficulty speaking. Stroke alert yesterday. Post TPA. MEDICAL HISTORY : None. SURGICAL HISTORY : Tubal ligation. Hysterectomy. ENCOUNTER: Subsequent ACUITY: 2 day PAIN SCORE: 0/10 LOCATION: head. Please note a normal MRA of the brain does not entirely exclude the possibility of a small aneurysm, nor the possibility of distal intracranial vessel disease. TECHNIQUE: 3D time of flight MRA was performed. Source images, multiplanar STS MIP, and 3D volume MIP reconstru ctions were reviewed. FINDINGS: Anterior circulation: Distal intracranial internal carotid arteries are patent with flow extending to the middle and anteri or cerebral arteries. There is no evidence for aneurysm, vessel truncation or stenosis, and no eviden ce for vascular malformation. Posterior circulation: Symmetric distal vertebral arteries with flow extending to basilar artery. Patent left P-comm. There is no evidence for aneurysm, vessel truncation or stenosis, and no evidence for vascular malformatio n. CONCLUSION: 1. Unremarkable MRA examination of the brain. Specifically, no evidence for large vessel occlusion or significant cerebral artery stenosis. Dayron Holt MD on October 19, 2017 at 17:51 Board Certified Radiologist. This report was verified electronically.
--- NOTE | 2017-10-19 20:19 | ECHRPT ---
Indication: CVA/TIA CONCLUSIONS The left ventricular systolic function is hyperdynamic with an estimated ejection fraction in the ra nge of 65- 70%. Normal left ventricular size. Wall thickness is normal. No regional wall motion abnormalities are present. Trace aortic valve regurgitation. There is trace tricuspid valve regurgitation. The estimated pulmonary arterial pressure is 29 mmHg. BP: 134 / 85 HR: 90 Rhythm: Sinus MEASUREMENTS (Male / Female) Normal Values Technical Quality:Fair 2D ECHO LV Diastolic Diameter PLAX 5.0 cm 4.2 - 5.9 / 3.9 - 5.3 cm LV Systolic Diameter PLAX 2.9 cm IVS Diastolic Thickness 1.1 cm 0.6 - 1.0 / 0.6 - 0.9 cm LVPW Diastolic Thickness 1.1 cm 0.6 - 1.0 / 0.6 - 0.9 cm LV Relative Wall Thickness 0.4 RV Internal Dim ED PLAX 2.4 cm LVOT Diameter 2.1 cm LV Ejection Fraction MOD 4C 67.4 % LV Cardiac Index MOD 4C 2554.0 cm/minm LV Ejection Fraction 4C AL 70.1 % LV Cardiac Index 4C AL 2777.2 cm/minm M-MODE Aortic Root Diameter MM 3.1 cm AV Cusp Separation MM 1.8 cm DOPPLER AV Peak Velocity 167.0 cm/s AV Peak Gradient 11.2 mmHg AI Peak Velocity 320.0 cm/s AI Peak Gradient 41.0 mmHg AI Pressure Half Time 1076.0 ms LVOT Peak Velocity 109.0 cm/s LVOT Peak Gradient 4.8 mmHg AV Area Cont Eq pk 2.3 cm MV Area PHT 3.4 cm Mitral E Point Velocity 89.8 cm/s Mitral A Point Velocity 118.0 cm/s Mitral E to A Ratio 0.8 LV E' Lateral Velocity 6.7 cm/s Mitral E to LV E' Lateral Ratio 13.3 LV E' Septal Velocity 7.4 cm/s Mitral E to LV E' Septal Ratio 12.1 TR Peak Velocity 217.0 cm/s TR Peak Gradient 18.8 mmHg Right Atrial Pressure 10.0 mmHg Pulmonary Artery Systolic Pressu 28.8 mmHg Right Ventricular Systolic Press 28.8 mmHg PV Peak Velocity 136.0 cm/s PV Peak Gradient 7.4 mmHg FINDINGS LEFT VENTRICLE The left ventricular systolic function is hyperdynamic with an estimated ejection fraction in the ra nge of 65- 70%. Normal left ventricular size. Wall thickness is normal. No regional wall motion abnormalities are present. RIGHT VENTRICLE Normal right ventricular size and systolic function. LEFT ATRIUM The left atrial size is normal. RIGHT ATRIUM The right atrial size is normal. ATRIAL SEPTUM Normal atrial septal thickness without atrial level shunting by limited color doppler interrogation. AORTA The aortic root and proximal ascending aorta are normal in size on limited imaging. MITRAL VALVE Structurally normal mitral valve. No mitral valve stenosis or regurgitation. AORTIC VALVE Trileaflet aortic valve. Trace aortic valve regurgitation. TRICUSPID VALVE Structurally normal tricuspid valve. There is trace tricuspid valve regurgitation. The estimated pulmonary arterial pressure is 28.8 mmHg. PULMONARY VALVE No pulmonary valve regurgitation or stenosis. VESSELS The inferior vena cava is normal in size. PERICARDIUM No pericardial effusion. Ting Peterson MD, FACC (Electronically Signed) Final Date:19 October 2017 20:18
[2017-10-19] MEDS ORDERED: ATORVASTATIN 40 MG TAB PO SCH (21:00)
--- NOTE | 2017-10-19 21:42 | MG ---
cc: REJI SHANNON MD Lab No: Date: 10/19/2017 Age: Sex: F Race: DATE OF [address] Zaragoza. MEDICAL HISTORY History of chronic neck pain, headache, weakness, weight gain, hysterectomy, left knee surgery, depression, anxiety, fatigue presented with increasing left upper extremity weakness, anxiety. MEDICATIONS 1. Lyrica. 2. [place]. 3. Morphine sulfate. 4. Zofran. DESCRIPTION The background activity is 6-7 Hz theta superimposed by excess beta activity. There is posterior to anterior gradient. During the recording the patient transitioned to stage II sleep with appearance of K complex and sleep spindles. There is generalized slowing during the recording. Intermittent high amplitude theta activity. Hyperventilation was omitted. Photic stimulation did not elicit a driving response. There were no electrographic seizures or epileptiform discharges noted. INTERPRETATION This is an awake, drowsy and asleep EEG. The generalized slowing may indicate an encephalopathy that may be secondary to medication effects or a metabolic etiology. There was no ictal activity or epileptiform discharges noted during the recording. Clinical correlation is recommended. Reji Shannon MD RGO/KK /7:27 PM /9:25 PM MTDD
--- NOTE | 2017-10-19 22:04 | EKG ---
Date Performed: 10/18/2017 Time Performed: 15:57:13 PTAGE: 47 years EKG: Sinus rhythm NORMAL ECG NO PREVIOUS TRACING DOCTOR: Ting Peterson Interpretating Date/Time 10/19/2017 22:03:12
[2017-10-20 00:10] VITALS: BP 119/70; PULSE 67; RESP 18; TEMP 96.9; O2SAT 97
[2017-10-20] MEDS: RESP: ALBUTEROL 2.5 MG/IPRATROPIUM 0.5 MG NEB (SCH) INH ×2 (02:57→09:11)
[2017-10-20] MEDS: CHLORHEXIDINE GLUCONATE 2 % 1 PACK (2 CLOTHS) TOP SCH (04:00)
[2017-10-20 04:20] VITALS: BP 122/70; PULSE 60; RESP 18; TEMP 97.5; O2SAT 96
[2017-10-20 08:00] VITALS: BP 130/80; PULSE 66; RESP 18; TEMP 97; O2SAT 97
[2017-10-20] MEDS: INSULIN ASPART SUPPLEMENTAL SCALE SQ SCH ×2 (08:00→11:38)
--- NOTE | 2017-10-20 08:59 | HHI.PR ---
Review/Management Diagnosis/Plan: (1) Psychogenic weakness ICD Codes: R53.1 - Weakness Status: Acute Plan: psychogenic weakness/stuttering weakness better but still with some stuttering, very functional mri negative intracranial vessels negative recs d/c home from neurology p.t. aspirin 81mg/statin qdaily wt loss/exercise/bp/lipid control (2) HLD (hyperlipidemia) ICD Codes: E78.5 - Hyperlipidemia, unspecified Status: Chronic Plan: statin (3) Anxiety ICD Codes: F41.9 - Anxiety disorder, unspecified (4) Migraine headache ICD Codes: G43.909 - Migraine, unspecified, not intractable, without status migrainosus Subjective Subjective Comments No acute events reported "i'm feeling better" No headache No chest pain No dyspnea Active Medications Current Medications Medications (Trade) Dose Ordered Sig/Dolores Route Start Time Stop Time Status Last Admin (NS Flush) 2 ml BID IV FLUSH 10/18/17 21:00 10/19/17 09:20 (NS Flush) 2 ml UNSCH PRN IV FLUSH 10/18/17 17:15 Sodium Chloride 1,000 ml @ 70 mls/hr [id number] IV 10/18/17 17:08 10/19/17 06:04 (Vasotec Inj) 1.25 mg Q4H PRN IV PUSH 10/18/17 17:15 (NovoLOG SUPPLEMENTAL SCALE) 1 ACHS SQ 10/18/17 21:00 (D50w (Vial) Inj) 50 ml UNSCH PRN IV PUSH 10/18/17 17:15 (Glucagon Inj) 1 mg UNSCH PRN OTHER 10/18/17 17:15 (Tylenol) 650 mg Q6H PRN PO 10/18/17 17:15 ([place] 5-325 Mg) 1 tab Q4H PRN PO 10/18/17 17:15 10/19/17 23:29 (Morphine Inj) 2 mg Q2H PRN IV PUSH 10/18/17 17:15 10/18/17 19:54 (Pepcid Inj) 20 mg Q12HR IV PUSH 10/18/17 21:00 10/19/17 21:58 (Tears Naturale Opth Soln) 1 drop TID EACH EYE 10/18/17 18:00 (Zofran Inj) 4 mg Q6H PRN IV PUSH 10/18/17 17:15 10/19/17 03:42 (Duoneb Neb) 1 ampule Q6HR NEB INH 10/18/17 22:00 10/20/17 02:57 (Albuterol Neb) 2.5 mg Q2HR NEB PRN INH 10/18/17 17:15 Miscellaneous Information 1 Q361D XX 10/18/17 17:15 (Chlorhexidine 2% Cloth) 3 pack Taper DAILY@04 TOP 10/19/17 04:00 10/15/18 03:59 10/19/17 02:30 (Chlorhexidine 2% Cloth) 3 pack UNSCH PRN TOP 10/18/17 17:15 (Sindy-Colace) 1 tab BID PO 10/18/17 21:00 10/19/17 21:58 (Milk Of Magnesia Liq) 30 ml Q12H PRN PO 10/18/17 17:15 (Senokot) 17.2 mg Q12H PRN PO 10/18/17 17:15 (Dulcolax Supp) 10 mg DAILY PRN RECTAL 10/18/17 17:15 (Lactulose Liq) 30 ml DAILY PRN PO 10/18/17 17:15 (Buspar) 15 mg BID PO 10/18/17 21:00 10/19/17 21:59 (ZyrTEC) 10 mg DAILY PO 10/19/17 09:00 10/19/17 12:49 (Lexapro) 20 mg DAILY PO 10/19/17 09:00 10/19/17 12:49 (Flonase Kadeem Spr) 1 spray BID EACH NARE 10/18/17 21:00 (Lyrica) 300 mg BID PO 10/18/17 21:00 10/19/17 21:58 Patient Own Medication PT OWN MED: Mometasone-Formoterol... BID INH 10/19/17 09:00 Future Hold (Lipitor) 40 mg HS PO 10/19/17 21:00 10/19/17 21:00 (Aspirin) 325 mg DAILY PO 10/20/17 18:00 Allergies Allergies Coded Allergies alendronate sodium (Unverified Allergy, Mild, 05/24/17) paroxetine (Unverified Allergy, Mild, 05/24/17) prochlorperazine (Unverified Allergy, Mild, 05/24/17) Review of Systems All other ROS: ROS reviewed as documented in chart Exam I&O / VS Vital Signs Date Time Temp Pulse Resp B/P (MAP) Pulse Ox O2 Delivery O2 Flow Rate FiO2 10/20/17 08:00 97.0 66 18 130/80 (97) 97 10/20/17 04:20 97.5 60 18 122/70 (87) 96 10/20/17 00:10 96.9 67 18 119/70 (86) 97 10/19/17 21:43 Nasal Cannula 2.00 10/19/17 21:43 Nasal Cannula 2.00 10/19/17 20:28 98 Nasal Cannula 2.00 10/19/17 19:00 98.3 71 20 143/72 (95) 94 10/19/17 19:00 74 10/19/17 15:24 16 10/19/17 15:00 97.8 58 20 125/70 (88) 94 10/19/17 15:00 58 10/19/17 14:39 16 10/19/17 11:12 98.5 62 18 116/65 (82) 95 10/19/17 10:31 95 Nasal Cannula 2.00 General: No acute distress Eye: EOMI Respiratory: Non-labored respirations Cardiology: Normal rate Neurologic: Alert Exam Comments alert, ox 3, mild stuttering off/on, face sym, eomi, vff, left side 5-/5 proportional to pt effort and strength can fluctuate, msr sym, no clonus, planterflexor Problem Qualifiers (1) HLD (hyperlipidemia): Qualified Codes: E78.5 - Hyperlipidemia, unspecified (2) Migraine headache: Qualified Codes: G43.009 - Migraine without aura, not intractable, without status migrainosus Jerome Zaragoza MD Oct 20, 2017 08:59
[2017-10-20] MEDS: FLUTICASONE PROPIONATE 50 MCG/ACT 16 GM NASAL SPRAY EACH NARE SCH (09:00)
[2017-10-20] MEDS: SODIUM CHLORIDE 0.9% FLUSH 10 ML FLUSH IV FLUSH SCH (09:00)
[2017-10-20] MEDS: ARTIFICIAL TEARS OPTH SOLN 15 ML BTL EACH EYE SCH ×2 (09:00→12:52)
[2017-10-20] MEDS: busPIRone HCL 5 MG TAB PO SCH (09:03)
[2017-10-20] MEDS: PREGABALIN 100 MG CAP PO SCH (09:03)
[2017-10-20] MEDS: DOCUSATE SODIUM 50 MG/SENNA 8.6 MG TAB PO SCH (09:04)
[2017-10-20] MEDS: ACETAMINOPHEN/HYDROcodone 325 MG/5 MG TAB PO PRN ×2 (09:04→13:46)
[2017-10-20] MEDS: ESCITALOPRAM OXALATE 20 MG TAB PO SCH (09:04)
[2017-10-20] MEDS: FAMOTIDINE 20 MG/2 ML VIAL IV PUSH SCH (09:04)
[2017-10-20 09:13] VITALS: O2SAT 98
[2017-10-20] MEDS: CETIRIZINE HCL 10 MG TAB PO SCH (11:38)
[2017-10-20 11:55] VITALS: BP 95/69; PULSE 87; RESP 18; TEMP 96.9; O2SAT 94
[2017-10-20] MEDS: SODIUM CHLOR 0.9% 1000 ML INJ 1,000 ML IV SCH (12:02)
--- NOTE | 2017-10-20 12:49 | HHI.PR ---
Subjective Remarks patient feeling better up and ambualting with a walker feels stronger stuttering- baseline seen with at bedside no pain Objective Vitals Vital Signs Date Time Temp Pulse Resp B/P (MAP) Pulse Ox O2 Delivery O2 Flow Rate FiO2 10/20/17 11:55 96.9 87 18 95/69 (78) 94 10/20/17 09:13 Nasal Cannula 2.00 10/20/17 09:13 98 Nasal Cannula 1.00 10/20/17 08:00 97.0 66 18 130/80 (97) 97 10/20/17 04:20 97.5 60 18 122/70 (87) 96 10/20/17 00:10 96.9 67 18 119/70 (86) 97 10/19/17 21:43 Nasal Cannula 2.00 10/19/17 21:43 Nasal Cannula 2.00 10/19/17 20:28 98 Nasal Cannula 2.00 10/19/17 19:00 98.3 71 20 143/72 (95) 94 10/19/17 19:00 74 10/19/17 15:24 16 10/19/17 15:00 97.8 58 20 125/70 (88) 94 10/19/17 15:00 58 10/19/17 14:39 16 I/O 10/19/17 10/19/17 10/19/17 10/20/17 10/20/17 10/20/17 07:00 15:00 23:00 07:00 15:00 23:00 Intake Total 1000 ml 820 ml 240 ml Output Total 950 ml 1300 ml 1850 ml Balance 50 ml -480 ml -1610 ml Intake Oral 120 ml 240 ml IV Total 1000 ml 700 ml Output Urine Total 950 ml 1300 ml 1850 ml # Bowel Movements 0 0 0 Result Diagram: 10/19/17 0330 10/19/17 0330 Imaging Last Impressions Head CT 10/19/17 1600 Signed Impressions: Service Date/Time: Thursday, October 19, 2017 16:24 - CONCLUSION: Negative for an acute process. Bill Bailey MD FACR Head Magnetic Resonance Angiography 10/19/17 0000 Signed Impressions: Service Date/Time: Thursday, October 19, 2017 16:38 - CONCLUSION: 1. Unremarkable MRA examination of the brain. Specifically, no evidence for large vessel occlusion or significant cerebral artery stenosis. Dayron Holt MD Brain MRI 10/19/17 0000 Signed Impressions: Service Date/Time: Thursday, October 19, 2017 16:38 - CONCLUSION: 1. There is no evidence of acute ischemic event. 2. There is no evidence for hemorrhage. Bill Bailey MD FACR Neck CTA 10/18/17 1530 Signed Impressions: Service Date/Time: Wednesday, October 18, 2017 15:33 - CONCLUSION: No evidence of significant carotid or vertebral disease. Jadiel Shields MD Head CTA 10/18/17 1530 Signed Impressions: Service Date/Time: Wednesday, October 18, 2017 15:33 - CONCLUSION: Negative exam. Intracranial vessels are all patent without embolic disease. Clifton Fisher MD Objective Remarks awake and alert, oriented x 3 speech stuttering lungs clear egular rhythnm abdomensoft, notender extremities no edema gait- steady- baseline- with a walker grossly no sensory deficits A/P Problem List: (1) Migraine headache ICD Code: G43.909 - Migraine, unspecified, not intractable, without status migrainosus (2) Gastroesophageal reflux disease ICD Code: K21.9 - Gastro-esophageal reflux disease without esophagitis (3) Insomnia ICD Code: G47.00 - Insomnia, unspecified (4) Anxiety ICD Code: F41.9 - Anxiety disorder, unspecified (5) Depression ICD Code: F32.9 - Major depressive disorder, single episode, unspecified (6) Fibromyalgia ICD Code: M79.7 - Fibromyalgia (7) Asthma ICD Code: J45.909 - Unspecified asthma, uncomplicated (8) Allergic rhinitis ICD Code: J30.9 - Allergic rhinitis, unspecified (9) Stroke ICD Code: I63.9 - Cerebral infarction, unspecified Status: Acute (10) Neck pain, chronic ICD Code: M54.2 - Cervicalgia; G89.29 - Other chronic pain (11) Low back pain at multiple sites ICD Code: M54.5 - Low back pain (12) Osteoarthritis ICD Code: M19.90 - Unspecified osteoarthritis, unspecified site (13) Obstructive sleep apnea ICD Code: G47.33 - Obstructive sleep apnea (adult) (pediatric) Assessment and Plan CVA Depression Anxiety Fibromyalgia Migraine headache Allergic rhinitis CT/CTA brain and CTA neck WNL MRI brain ordered . Not completed CT brain 24 hr after alteplase infusion at 1601/10 ISC admit Neuro checks Holding zolpidem 10 mg by mouth night for insomnia Holding cyclobenzaprine 10 mg by mouth 3 times a day for muscle spasm Holding triptan 100 mg as needed for migraine headache during Continue escitalopram 20 mg by mouth daily Continue pregabalin 300 mg by mouth twice a day Continue cetirizine 10 mg by mouth daily Follow neurologist recommended. ASA ddaily CV: Elevated cholesterol Elevated HDL Elevated LDL Hypertension Goal systolic blood pressure less than 185/diastolic blood pressure less than 110 As needed labetalol, hydralazine nicardipine drip 2-D echocardiogram unremarkable Lipid panel revealed elevated total cholesterol, LDL and HDL. Started on atorvastatin 40 mg at night Resp: Asthma Obstructive sleep apnea - 2 L oxygen dependent at night Prior tobaccoism Continue mometasone/formoterol 200/5 2 puffs twice a day /hospital substitution Albuterol/ipratropium aerosols every 6 hours scheduled with albuterol aerosols every 2 hours. Dyspnea Hold tiotropium 18 g inhalation daily and albuterol inhaler/home medication GI: Gastroesophageal reflux disease Patient is currently nothing by mouth. Okay for diet post CT brain Famotidine 20 mg by mouth twice a day for GI prophylaxis. On omeprazole 40 mg daily at home On ondansetron 4 mg every 6 hours when necessary nausea/vomiting. Continued Docusate sodium/senna 1 tablet twice a day for bowel regimen : No indication for Huertas catheter Endo: Sliding-scale insulin if indicated to maintain euglycemia Novulog low regimen Hemoglobin A1c/TSH - normal Renal: Currently normal saline at 70 cc an hour Monitor urine output Accurate I's and O's DC home today FF up with PCP- Dr. Corley as OP CM- consult- DME- needs a new walker- (old one wobbly) diet heart healthy activity weightb earing as toelrated Meds - as aobe FF up with PCP- Dr. Powell as OP Problem Qualifiers (1) Migraine headache: Qualified Codes: G43.009 - Migraine without aura, not intractable, without status migrainosus (2) Gastroesophageal reflux disease: Qualified Codes: K21.9 - Gastro-esophageal reflux disease without esophagitis (3) Insomnia: Qualified Codes: G47.00 - Insomnia, unspecified (4) Depression: Qualified Codes: F33.42 - Major depressive disorder, recurrent, in full remission (5) Asthma: Qualified Codes: J45.20 - Mild intermittent asthma, uncomplicated (6) Allergic rhinitis: Qualified Codes: J30.89 - Other allergic rhinitis (7) Stroke: Qualified Codes: I63.9 - Cerebral infarction, unspecified (8) Osteoarthritis: Qualified Codes: M19.90 - Unspecified osteoarthritis, unspecified site Maggie Mccoy MD Oct 20, 2017 12:49
[2017-10-20] MEDS ORDERED: ATOR40TA16 PO (12:52)
[2017-10-20] MEDS ORDERED: ASA325 PO (12:52)
[2017-10-20] MEDS ORDERED: ASPIRIN 325 MG TAB PO SCH (18:00)
== END 2017-10-20 15:13 | disposition home or self-care (01) | DRG 63 ==
LOC: NEPE 15:23 → NEDA 16:55 → HCVI 10-19 02:00 → N06B 10-19 22:44
PROVIDERS: ADMIT Internal Medicine; ATTEND Internal Medicine
DX: I63.9 Cerebral infarction, unspecified (principal); R47.01 Aphasia; I10 Essential (primary) hypertension; T78.3XXA Angioneurotic edema, initial encounter; R53.1 Weakness; M79.7 Fibromyalgia; G47.00 Insomnia, unspecified; E78.00 Pure hypercholesterolemia, unspecified; G47.33 Obstructive sleep apnea (adult) (pediatric); K21.9 Gastro-esophageal reflux disease without esophagitis; F41.9 Anxiety disorder, unspecified; E78.5 Hyperlipidemia, unspecified; G43.009 Migraine without aura, not intractable, without status migrainosus; M54.2 Cervicalgia; M54.5 Low back pain; M19.90 Unspecified osteoarthritis, unspecified site; Z82.3 Family history of stroke; Z87.891 Personal history of nicotine dependence; Z96.652 Presence of left artificial knee joint
CPT/HCPCS: 51702; 70450; 70496; 70498; 70544; 70551; 80053; 80061; 80307; 81001; 82435; 82550; 82552; 82565; 82947; 82948; 83036; 83605; 83735; 84100; 84132; 84295; 84484; 84520; 84702; 85025; 85384; 85610; 85730; 86850; 86900; 86901; 93005; 93306; 94150; 94640; 94664; 95819; 96365; 96375; J1200; J2270; J2405; J2930; J2997; J7030; Q9967

== ENCOUNTER 2018-02-18 13:21 | Emergency (ER) | payer OTHER ==
[~2018-02-18 13:21] MED LIST changes: +ALBU6.7H INH; +ALBUAER3 INH; +ASA325 PO; +ATOR40TA16 PO; +BUSP15TA PO; +CETI10 PO; +CYCL10TA PO; +DIMEELX PO; +DULE200A INH; +ESCI20TA PO; +FLU60SYR IM; +FLUT50SP EACH NARE; -IODIXANOL 320 MG/ML 10 ML VIAL (for Rad CT) IVCONTRAST ONE; +OMEP40CA2 PO; +ONDA4TAB15; -PANT20 PO; +PREG300 PO; +SPIRCAP INH; +SUMA100T2 PO; -ZOFR4TAB3 SL; +ZOLP10TA3 PO
[2018-02-18 13:36] VITALS: BP 146/86; PULSE 94; RESP 16; TEMP 99.1; O2SAT 97
--- NOTE | 2018-02-18 13:54 | PD ---
HPI Chief Complaint: Injury Time Seen by Provider: 13:46 Travel History International Travel<30 days: No Contact w/Intl Traveler<30days: No Traveled to known affect area: No History of Present Illness HPI 47-year-old female here for evaluation of right foot pain/injury. The patient reports that she dropped 3 dinner plates onto the dorsum of her right foot yesterday evening. She experienced immediate pain and has had persistent pain since. She has also noted ecchymosis and swelling to the dorsum of her foot. Pain is moderate, constant, worse with movement, palpation, and ambulation. She has been ambulatory and has been able to drive today. She has taken ibuprofen without relief of symptoms. No other injuries. PFSH Past Medical History Anxiety: Yes Depression: Yes Immunizations Current: Yes Past Surgical History Section: Yes (x2) Eye Surgery: Yes (sinus) Hysterectomy: Yes Social History Alcohol Use: No Tobacco Use: No (quit 6 years ago) Substance Use: No Allergies-Medications (Allergen,Severity, Reaction): Coded Allergies: alendronate sodium (Unverified Allergy, Mild, 02/18/18) paroxetine (Unverified Allergy, Mild, 02/18/18) prochlorperazine (Unverified Allergy, Mild, 02/18/18) Reported Meds & Prescriptions Reported Meds & Active Scripts Active Atorvastatin (Atorvastatin Calcium) 40 Mg Tab 40 Mg PO HS 30 Days Reported Hydrocodone-Acetaminophen 5-325 mg Tab 1 Tab PO Q6H PRN Dimetapp Cold & Allergy Liq (Brompheniramine-Phenylephrine Liq) 1-2.5 Mg/5 Ml Elix 10 Ml PO Q4-6H PRN Do not exceed 6 doses in 24 hours. Fluticasone Nasal [place] 50 Mcg/Act Naspr 50 Mcg EACH NARE BID 50 mcg/spray Flexeril (Cyclobenzaprine HCl) 10 Mg Tab 10 Mg PO TID Ondansetron (Ondansetron HCl) 4 Mg Tab Lyrica (Pregabalin) 300 Mg Cap 300 Mg PO BID Zolpidem (Zolpidem Tartrate) 10 Mg Tab 10 Mg PO HS PRN Dulera 120 Act Inh (Mometasone-Formoterol 120 Act Inh) 200-5 Mcg/Act Inh 2 Puff INH BID Spiriva Handihaler (Tiotropium Inh) 18 Mcg Cap 18 Mcg INH DAILY 1 capsule = 18 mcg Proventil Hfa 6.7 GM Inh (Albuterol Sulfate) 90 Mcg/Act Aer 1 Puff INH Q4H PRN Proair Hfa 8.5 GM Inh (Albuterol Sulfate) 90 Mcg/Act Aer 1 Puff INH Q4H PRN 108 mcg/actuation Sumatriptan (Sumatriptan Succinate) 100 Mg Tab 100 Mg PO ONCE PRN If a satisfactory response has not been obtained at 2 hours, a second dose may be administered Omeprazole 40 Mg Cap 40 Mg PO DAILY Buspirone (Buspirone HCl) 15 Mg Tab 15 Mg PO BID Escitalopram (Escitalopram Oxalate) 20 Mg Tab 20 Mg PO DAILY Cetirizine (Cetirizine HCl) 10 Mg Tab 10 Mg PO DAILY Review of Systems Except as stated in HPI: all other systems reviewed are Neg Physical Exam Narrative GENERAL: Well-developed, well-nourished, comfortable, no apparent distress. SKIN: Focused skin assessment warm/dry. Ecchymosis to the dorsum/distal right foot with moderate edema, no open wounds. HEAD: Atraumatic. Normocephalic. EYES: Pupils equal and round. No scleral icterus. No injection or drainage. ENT: No nasal bleeding or discharge. Mucous membranes pink and moist. NECK: Trachea midline. No JVD. CARDIOVASCULAR: Regular rate and rhythm. Bilateral dorsalis pedis pulses are brisk and equal. MUSCULOSKELETAL: Skin exam as above. Moderate tenderness throughout the entire right foot excluding the toes. All compartments in the right lower extremity are supple. Right foot is neurovascularly intact. NEUROLOGICAL: Awake and alert. No obvious cranial nerve deficits. Motor grossly within normal limits. Normal speech. PSYCHIATRIC: Appropriate mood and affect; insight and judgment normal. Data Data Last Documented VS Vital Signs Date Time Temp Pulse Resp B/P (MAP) Pulse Ox O2 Delivery O2 Flow Rate FiO2 02/18/18 13:36 99.1 94 16 146/86 (106) 97 Orders Orders Foot, Complete ([id number]) (02/18/18 ) [facility] Medical Decision Making Medical Screen Exam Complete: Yes Emergency Medical Condition: Yes Differential Diagnosis Right foot fracture, Lisfranc fracture, right foot contusion Narrative Course Vital signs reviewed. Right foot x-ray: Negative for fracture dislocation. Follow-up in 7-10 days is suggested if symptoms persist. Patient was made aware of all findings. She is resting comfortably. Byron wrap will be applied as well as a postop shoe. She already has a cane with her and will attempt to ambulate with this. I will give her the information to the on- call tube lancer with whom she can follow-up within the next week if her symptoms persist. RICE endorsed. She is stable for discharge home with outpatient follow-up. She was advised on when to return to the emergency department. She verbalizes understanding and agreement with plan. Diagnosis Primary Impression: Contusion of right foot Qualified Codes: S90.31XA - Contusion of right foot, initial encounter Referrals: Apurva Moore DPM 1 week [employer] Investigator Primary Care Physician 1 week Additional Instructions: Follow-up with your primary care physician this week. Follow-up with tube lancer Dr. Moore or a tube lancer of your choice this week. Return to the emergency department for worsening symptoms or any other concerns. Disposition: 01 DISCHARGE HOME Condition: Stable Wojciech Cuello MD February 18, 2018 13:54
[2018-02-18] MEDS ORDERED: HYDR-3516 PO (13:55)
--- NOTE | 2018-02-18 14:15 | RADRPT ---
EXAM DATE/TIME: 02/18/2018 14:01 [place] COMPARISON: No previous studies available for comparison. INDICATIONS : Right foot pain. Patient dropped a set of plates on top of her foot. MEDICAL HISTORY : None. SURGICAL HISTORY : None. ENCOUNTER: Initial ACUITY: 2 days PAIN SCORE: 5/10 LOCATION: Right foot. FINDINGS: Three view examination of the right foot demonstrates no soft tissue swelling, dislocation, or fractu re. The tarsal bones appear intact. The interphalangeal and metatarsophalangeal joints are intact. The calcaneus is intact. Bony mineralization is normal. CONCLUSION: Negative for fracture or dislocation. Follow up in 7-10 days is suggested if symptoms persist. Bill Bailey MD FACR on February 18, 2018 at 14:09 Board Certified Radiologist. This report was verified electronically.
[2018-02-18 15:22] VITALS: BP 136/99
== END 2018-02-18 15:28 | disposition home or self-care (01) ==
LOC: NEPE 13:21
DX: S90.31XA Contusion of right foot, initial encounter (principal); W20.8XXA Other cause of strike by thrown, projected or falling object, initial encounter
CPT/HCPCS: 73630; 99283; E0113; L3260